=== PATIENT | female | born 1995 | race Two or more races ===

== ENCOUNTER 2020-11-10 03:55 | Emergency (ER) | payer OTHER ==
[~2020-11-10] VITALS: Ht 152.4 cm; Wt 76.3 kg
[2020-11-10] MEDS ORDERED: PNV1TABL58 PO (04:10)
[2020-11-10 04:36] VITALS: BP 114/76
== END 2020-11-10 04:45 | disposition short-term general hospital (02) ==
LOC: EMS 03:55
DX: O60.14X0 Preterm labor third trimester with preterm delivery third trimester, not applicable or unspecified (principal); Z3A.32 32 weeks gestation of pregnancy
CPT/HCPCS: 99285; Z7502